=== PATIENT | male | born 1965 | race Caucasian/White ===

== ENCOUNTER 2018-05-22 03:32 | Observation (INO) | payer BC ==
[2018-05-22] MEDS ORDERED: HYDROcodone/Acetaminophen 5/325 mg Tablet ONE (05:39)
[2018-05-22 06:21] LABS: Anion Gap 10 mmol/L (10-20); BUN (Urea Nitrogen) 12 mg/dL (8.4-25.7); Calc. Creatinine Clearance 0 mL/min (70-130); Calcium 8.5 mg/dL (7.8-10.44); Carbon Dioxide 25 mmol/L (22-29); Chloride 103 mmol/L (98-107); Estimated GFR-MDRD Greater than 90; Glucose 100 mg/dL (70-105); Potassium 4.2 mmol/L (3.5-5.1); Sodium 134 mmol/L (136-145)
[2018-05-22 07:27] LABS: Troponin I Less than 0.010 ng/mL (< 0.028)
--- NOTE | 2018-05-22 09:18 | CON ---
DATE OF CONSULTATION: ATTENDING PHYSICIAN: Raciel Pearce MD HISTORY OF PRESENT ILLNESS: The patient is a 52-year-old male who is otherwise healthy, who presented to the emergency department per EMS as transfer from [facility] following a syncopal episode. The patient reports this evening , he was standing while at his 's birthday democrat when he suddenly suffered syncopal event. The patient has little memory of the event. Per witnesses, he reportedly struck the back of his head. EMS was contacted, which took him to [facility] , where CT head was done, which showed prominence of the anterior communicating artery, no acute intracranial hemorrhage was noted. The patient was also found to have a right ankle fracture. He was transferred to [facility] ER for further management. 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 The patient reports only mild headache. I have seen the patient at the bedside. He reports only mild headache at the impact site. He denies any other associated symptoms. PAST MEDICAL HISTORY: Denies any other prior medical problems. MEDICATIONS: Does not take any medications. PAST SURGICAL HISTORY: Tonsillectomy, right finger surgery. SOCIAL HISTORY: He does not smoke, drink, or use any drugs. REVIEW OF SYSTEMS: Per HPI. ALLERGIES: HE IS ALLERGIC TO PENICILLIN. PHYSICAL EXAMINATION: VITAL SIGNS: BP is 142/95, pulse is 109, respiration rate is 18, O2 is 98% on room air. CONSTITUTIONAL: A and O x4, comfortable, in no acute distress. GCS 15. HEENT: Head, he has contusion and superficial hematoma over the right posterior scalp. Eyes, PERRLA. Extraocular movements intact. ENT, oral mucosa is pink, intact and moist. The patient has normal voice. NECK: Nontender to palpation. Free active range of motion. No meningismus or nuchal rigidity. CARDIAC: Regular rate and rhythm. RESPIRATORY: Symmetric chest expansion. No evidence of dyspnea. MUSCULOSKELETAL: He has a splint in place to the right lower extremity. Remainder of extremities have free active range of motion. No focal motor weakness. No reflex asymmetry. Sensation is intact to light touch throughout. NEURO: A and O x4. Normal speech. No focal neurologic deficits are appreciated. ASSESSMENT AND PLAN: This is a 52-year-old, otherwise healthy male, who suffered an unprovoked syncopal episode tonight. 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 There is no intracranial hemorrhage identified and additionally, the patient has only mild soreness at the posterior scalp. No other significant complaints of headache or other associated symptoms. I believe, this is likely an incidental finding. The patient has been admitted to the hospitalist service for further evaluation of syncopal event. I have discussed patient presentation exam and imaging with Dr. Pearce, and he will also see the patient. Job ID: [id number] [facility]
[2018-05-22] MEDS ORDERED: CEFAZOLIN/Water 2 GM/20 ML SYRINGE SLOW IVP SCH (09:30)
[2018-05-22] MEDS ORDERED: Acetaminophen 325 MG TAB PO PRN (09:46)
[2018-05-22] MEDS ORDERED: Ondansetron PF 4 MG/2 ML Vial IVP PRN (09:46)
[2018-05-22] MEDS ORDERED: Enoxaparin Sodium 40 MG/0.4 ML SYRINGE SC SCH ×2 (09:46→10:45)
[2018-05-22] MEDS ORDERED: Ondansetron ODT 4 MG TAB PO PRN (09:46)
[2018-05-22] MEDS ORDERED: Acetaminophen 650 MG Suppository PR PRN (09:46)
--- NOTE | 2018-05-22 09:55 | CON ---
DATE OF CONSULTATION: 05/22/2018 CONSULTING PHYSICIAN: Oscar Jackson MD REASON FOR CONSULTATION: Right ankle fracture. HISTORY OF PRESENT ILLNESS: This is a 52-year-old gentleman, who was at a holiday democrat yesterday when he sustained a syncopal episode. Currently, at bedside, the patient states that he was watching a video on his cellphone with a friend when he suddenly passed out. He states he was "blacked out" for approximately 45 seconds according to witnesses. He struck his head and struck his ankle at that time. He was taken to [facility], where he was worked up and then transferred to our facility for higher level of care. He was found to have a right ankle fracture as well as an aneurysm on workup in the emergency department. Currently, at bedside, the patient states he is comfortable. He has a splint to the right lower extremity. He denies any other orthopedic injuries at the time of his fall. His pain is lessened since application of the splint. He denies any numbness or tingling or previous ankle surgeries to this extremity. PAST MEDICAL HISTORY: The patient denies any past medical history. PAST SURGICAL HISTORY: Tonsillectomy and right finger surgery. SOCIAL HISTORY: The patient states that he lives with his and 4-year-old daughter. He occasionally drinks socially. Denies any drug or tobacco use. FAMILY HISTORY: Reviewed and noncontributory. ALLERGIES: PCN REVIEW OF SYSTEMS: A 10-point review of systems is conducted and otherwise negative except for stated above. PHYSICAL EXAMINATION: Today shows, VITAL SIGNS: Blood pressure 136/102, pulse 116, respiratory rate of 20, temperature 99.6 degrees Fahrenheit, taken orally. GENERAL: The patient is awake and alert. He is in no apparent distress. He is pleasant and cooperative with exam today. Currently, no family is at bedside. HEENT: The patient does have a hematoma to the posterior portion of his scalp. NECK: Supple. Trachea midline. EXTREMITIES: The right lower extremity was evaluated. There is a short leg posterior splint present. Skin is free of lesions or rashes at the splint edges. The patient is able to move all toes. Sensation reported intact. Capillary refill 2 seconds. No other injuries noted to the remainder of the extremities. RADIOGRAPHIC FINDINGS: Including three views of the right ankle taken in the hospital in splint today reveal a distal fibula fracture of the lateral malleolus. There is displacement of the fracture site. ASSESSMENT: Right lateral malleolus fracture with displacement. PLAN: At this time, the patient will be nonweightbearing and we will plan for surgery tomorrow morning. He will be n.p.o. after midnight. Risks, benefits, and alternatives discussed at length with the patient today. These include, but are not limited to bleeding, infection, neurovascular compromise. He verbalizes understanding and is amenable to this plan of care. He is currently admitted to the telemetry and is being worked up further for his syncopal episode and newfound aneurysm. Plan of care discussed in conjunction with Dr. Jackson. Job ID: [id number] [facility]
--- NOTE | 2018-05-22 10:00 | CT ---
PRELIMINARY REPORT/[facility]/EMERGENTY AFTER-HOURS PROCEDURE CT Angiography Head Without And With Contrast EXAM DATE/TIME: 05/22/2018 5:22 AM CLINICAL HISTORY: 52 years old, male; Signs and symptoms; Syncope and collapse; Patient HX: M52 reports to ed via [place] C/O cerebral aneurysm and right ankle FX. PT was at a [employer] party and syncopized for 45 secon ds, witnessed. No fmhx aneurysm. PT denies medications. Pmhx hptn. TECHNIQUE: Axial computed tomographic angiography images of the head without and with intravenous contrast using CT angiography protocol. Coronal and sagittal reformatted images were created and reviewed. MIP beatrice nstructed images were created and reviewed. COMPARISON: No relevant prior studies available. FINDINGS: Right internal carotid artery: Unremarkable. Intracranial segment is patent with no significant steno sis. No aneurysm. Right anterior cerebral artery: Unremarkable. No occlusion or significant stenosis. No aneurysm. Right middle cerebral artery: Unremarkable. No occlusion or significant stenosis. No aneurysm. Right posterior cerebral artery: Unremarkable. No occlusion or significant stenosis. No aneurysm. Right vertebral artery: Unremarkable. No occlusion or significant stenosis. No aneurysm. Left internal carotid artery: Unremarkable. Intracranial segment is patent with no significant stenos is. No aneurysm. Left anterior cerebral artery: Unremarkable. No occlusion or significant stenosis. No aneurysm. Left middle cerebral artery: Unremarkable. No occlusion or significant stenosis. No aneurysm. Left posterior cerebral artery: Unremarkable. No occlusion or significant stenosis. No aneurysm. Left vertebral artery: Unremarkable. No occlusion or significant stenosis. No aneurysm. Basilar artery: Unremarkable. No occlusion or significant stenosis. No aneurysm. Other vasculature: Anterior communicating artery 3 mm aneurysm. HEAD: Brain: Unremarkable. No hemorrhage. No overt white matter disease. No edema. Ventricles: Normal. No ventriculomegaly. Bones/joints: Normal. No acute fracture. Sinuses: Normal as visualized. No acute sinusitis. Mastoid air cells: Normal as visualized. No mastoid effusion. Soft tissues: Posterior parietal scalp swelling. IMPRESSION: 1. No evidence of acute intracranial abnormality. 2. Anterior communicating artery 3 mm aneurysm. Thank you for allowing us to participate in the care of your patient. Dictated and Authenticated by: Gerber Velez MD 05/22/2018 6:30 AM Central Time ([place] & [place]) FINAL REPORT EMERGENT AFTER HOURS NONCONTRAST CT HEAD EMERGENT AFTER HOURS CT ANGIOGRAM HEAD: DATE: 05/22/2018. HISTORY: Syncopal episode. The patient was transferred from an outside institution with diagnosis of a cerebr al aneurysm. IMPRESSION: 1. No acute intracranial abnormality is seen on the noncontrast study. There is no intraparenchymal or extraaxial hemorrhage seen. 2. There is tortuosity of the vessels in the region of the anterior communicating arteries with ques tionable slight outpouching which may represent a tiny ACOM aneurysm; however, this may be attributab le to tortuosity. If warranted, a conventional angiogram could be performed for further evaluation. No additional aneurysm is seen within the limitations of the technique of this examination. 3. No focal stenosis or branch occlusion is seen involving the vertebrobasilar system or [place] of [place] illis. 4. Posterior parietal scalp hematoma. No underlying calvarial fracture is present. 5. Findings are in agreement with the preliminary report by [facility]. POS: [facility]
[2018-05-22 10:59] VITALS: BMI 34.4
--- NOTE | 2018-05-22 11:14 | RAD ---
RIGHT ANKLE 3 VIEWS: HISTORY: Ankle fracture. FINDINGS: Overlying fiberglass cast. Comminuted fracture of the lateral malleolus at and just above the level of the ankle mortise is present with 1/3 shaft width lateral displacement of the major distal fragmen t. Medial mortise is widened up to 0.7 cm. Medial malleolus and posterior malleolus are intact. IMPRESSION: Persistent bilateral displacement and subluxation at the Rice class C lateral malleolar fracture and lateral subluxation. POS: [facility]
--- NOTE | 2018-05-22 12:02 | PRG ---
DATE OF SERVICE: 05/22/2018 SUBJECTIVE: The patient was seen and examined. I agree with Elli Ahmadi's evaluation on 05/21/2018. The patient is a 52-year-old man with syncope. During the course of his evaluation, a prominence in the ACOM region was identified, followed up with CT angiography suggesting an aneurysm. The patient has no personal or family history of aneurysm or subarachnoid hemorrhage. He is neurologically intact. My review of the CT angiogram suggest a possible prominence in the ACOM region, which could be an infundibulum or may represent a tiny aneurysm. IMPRESSION AND PLAN: Possible tiny ACOM aneurysm. This is an incidental finding. I am recommending a followup CT angiogram in 6 months and I will arrange for this. I discussed with the patient. Job ID: [id number]
[2018-05-22] MEDS ORDERED: Clindamycin/D5W 900 MG in Premix Bag 1 BAG IVPB SCH (13:30)
[2018-05-22] MEDS ORDERED: ISOVUE-370 76%-LOCM 1 ML ONE (14:34)
[2018-05-22] MEDS: HYDROcodone/Acetaminophen 5/325 mg Tablet PO PRN (20:15)
[2018-05-23 05:20] LABS: #Eosinphils 0.5 thou/uL (0.0-0.7); #Lymphocytes 2.1 thou/uL (1.20-3.40); #Monocytes 0.9 thou/uL (0.11-0.59); #Neutrophils 6.4 thou/uL (1.40-6.50); %Basophils 0.4 % (0.0-1.0); %Eosinophils 4.9 % (0.0-10.0); %Lymphocytes 21.1 % (21.0-51.0); %Neutrophils 64.7 % (42.0-75.0); Hemoglobin 15.1 g/dL (14.0-18.0); Mean Corpuscular HGB CONC 34.5 g/dL (32.0-36.0); Mean Corpuscular Hemoglobin 30.3 pg (27.0-31.0); Mean Platelet Volume 7.2 fL (7.4-10.4); Platelet Count 247 thou/uL (130-400); RBC Distribution Width 12.3 % (11.5-14.5); Red Blood Cell (RBC) Count 4.96 mill/uL (4.70-6.10); White Blood Cell (WBC) Count 9.9 thou/uL (4.8-10.8)
[2018-05-23 05:39] LABS: Anion Gap 10 mmol/L (10-20); BUN (Urea Nitrogen) 8 mg/dL (8.4-25.7); Calc. Creatinine Clearance 173 mL/min (70-130); Calcium 8.6 mg/dL (7.8-10.44); Carbon Dioxide 25 mmol/L (22-29); Chloride 104 mmol/L (98-107); Estimated GFR-MDRD Greater than 90; Glucose 95 mg/dL (70-105); Potassium 3.8 mmol/L (3.5-5.1); Sodium 135 mmol/L (136-145)
[2018-05-23] MEDS ORDERED: hydrALAZINE 20 MG/ML VIAL SLOW IVP PRN (07:35)
[2018-05-23] MEDS ORDERED: Bisacodyl 5 MG TAB PO PRN (07:35)
[2018-05-23] MEDS ORDERED: Cepastat Lozenges 1 LOZ PO PRN (07:35)
[2018-05-23] MEDS ORDERED: Eucerin (Mineral Oil/Petrolatum,White) 30 gm Jar TOP PRN (07:35)
[2018-05-23] MEDS ORDERED: Artificial Tears 18 DROP/0.9 ML EA EYE PRN (07:35)
[2018-05-23] MEDS ORDERED: Diabetic Tussin 200 MG/10 ML UDCUP PO PRN (07:35)
[2018-05-23] MEDS ORDERED: Sodium Chloride 0.65% Nasal 44 ML BOT EA NARE PRN (07:35)
[2018-05-23] MEDS ORDERED: Loratadine 10 MG TAB PO PRN (07:35)
[2018-05-23] MEDS ORDERED: Loperamide HCl 2 MG CAP PO PRN (07:35)
[2018-05-23] MEDS ORDERED: Zolpidem Tartrate 5 MG TAB PO PRN (07:35)
[2018-05-23] MEDS ORDERED: Ketorolac Tromethamine 30 MG/ML VIAL IVP PRN (07:36)
[2018-05-23] MEDS ORDERED: Morphine 2 MG/ML SYRINGE SLOW IVP PRN (08:06)
[2018-05-23] MEDS ORDERED: Enoxaparin Sodium 40 MG/0.4 ML SYRINGE SC SCH (09:00)
[2018-05-23] MEDS ORDERED: Neomycin-Polymyxin 1 ML AMP ONE (09:28)
[2018-05-23] MEDS ORDERED: Bupivacaine PF 0.5% 30 ML VIAL ONE (09:28)
[2018-05-23] MEDS ORDERED: Clindamycin/D5W 900 mg/50 ml Premix Bag ONE (09:32)
[2018-05-23] MEDS ORDERED: Fentanyl 250 MCG/5 ML VIAL ONE (09:45)
[2018-05-23] MEDS ORDERED: Ondansetron HCl/PF 4 MG/2 ML Vial IVP PRN (10:26)
[2018-05-23] MEDS ORDERED: Promethazine HCl 25 MG/ML VIAL IM PRN (10:26)
[2018-05-23] MEDS ORDERED: Promethazine HCl 25 MG/ML VIAL SLOW IVP PRN (10:26)
--- NOTE | 2018-05-23 12:08 | PDOC.PN ---
- Subjective Encounter Start Date: 05/23/18 Encounter Start Time: 13:52 -: old records requested/rev - Objective Resuscitation Status - Order Detail: 05/22/18 07:52 Resuscitation Status Routine Resuscitation Status: FULL: Full Resuscitation MAR Reviewed: Yes Vital Signs & Weight: Vital Signs (12 hours) Temp Pulse Resp BP Pulse Ox 05/23/18 08:00 98 F 100 20 120/74 95 05/23/18 03:50 98.3 F 108 H 18 117/74 92 L Weight Weight 240 lb I&O: 05/22/18 05/23/18 05/24/18 06:59 06:59 06:59 Output Total 910 Balance -910 Result Diagrams: 05/23/18 04:34 05/23/18 04:34 EKG Reviewed by me: Yes (nsr) Phys Exam - Physical Examination Constitutional: NAD HEENT: PERRLA, moist MMs, sclera anicteric Neck: no JVD, supple Respiratory: no wheezing, no rales, no rhonchi Cardiovascular: RRR, no significant murmur, no rub Gastrointestinal: soft, non-tender, no distention, positive bowel sounds Musculoskeletal: no edema, pulses present right leg with dressing Neurological: non-focal, normal sensation, moves all 4 limbs Lymphatic: no nodes Psychiatric: normal affect, A&O x 3 Skin: no rash, normal turgor Dx/Plan (1) Ankle fracture, right Code(s): S82.891A - OTH FRACTURE OF RIGHT LOWER LEG, INIT FOR CLOS FX Status: Acute (2) Obesity (BMI 30.0-34.9) Code(s): E66.9 - OBESITY, UNSPECIFIED Status: Acute (3) Syncope Code(s): R55 - SYNCOPE AND COLLAPSE Status: Acute - Plan cont current plan of care, plan discussed w/ family * today plan for ankle surgery * get echo for syncope work up * medication reviewed as below * symptomatic treatment. Review of Systems - Review of Systems ENT: negative: Ear Pain, Ear Discharge, Nose Pain, Nose Discharge, Nose Congestion, Mouth Pain, Mouth Swelling, Throat Pain, Throat Swelling, Other Respiratory: negative: Cough, Dry, Shortness of Breath, Hemoptysis, SOB with Excertion, Pleuritic Pain, Sputum, Wheezing Cardiovascular: negative: chest pain, palpitations, orthopnea, paroxysmal nocturnal dyspnea, edema, light headedness, other Gastrointestinal: negative: Nausea, Vomiting, Abdominal Pain, Diarrhea, Constipation, Melena, Hematochezia, Other Genitourinary: negative: Dysuria, Frequency, Incontinence, Hematuria, Retention , Other Musculoskeletal: negative: Neck Pain, Shoulder Pain, Arm Pain, Back Pain, Hand Pain, Leg Pain, Foot Pain, Other - Medications/Allergies Allergies/Adverse Reactions: Allergies Allergy/AdvReac Type Severity Reaction Status Date / Time Penicillins Allergy Anaphylaxis Verified 05/22/18 14:50 Medications: Current Medications Acetaminophen (Tylenol) 650 mg PO Q4H PRN PRN Reason: Headache/Fever/Mild Pain (1-3) Hydrocodone Bitart/Acetaminophen (Irving 5/325) 1 tab PO Q4H PRN PRN Reason: Moderate Pain (4-6) Last Admin: 05/22/18 20:15 Dose: 1 tab Hydrocodone Bitart/Acetaminophen (Irving 5/325) 2 tab PO Q4H PRN PRN Reason: Severe Pain (7-10) Artificial Tears (Tears Naturale) 2 drop EA EYE PRN PRN PRN Reason: Dry Eyes Bisacodyl (Dulcolax) 10 mg PO DAILYPRN PRN PRN Reason: Constipation Fentanyl (Pacu-Sublimaze) 50 mcg SLOW IVP Q10MIN PRN PRN Reason: Moderate to Severe Pain (6-10) Stop: 05/23/18 13:26 Guaifenesin (Robitussin Sf) 200 mg PO Q4H PRN PRN Reason: Cough Hydralazine HCl (Apresoline) 10 mg SLOW IVP Q4H PRN PRN Reason: SBP > 180 and HR < 70 Clindamycin Phosphate/Dextrose (900 mg/ Device) 50 mls @ 100 mls/hr IVPB ONCALL -OR MAK Stop: 05/23/18 23:00 Ketorolac Tromethamine (Toradol) 15 mg IVP Q6H PRN PRN Reason: Pain Stop: 05/28/18 07:37 Loperamide HCl (Imodium) 2 mg PO PRN PRN PRN Reason: Diarrhea/Loose Stools Loratadine (Claritin) 10 mg PO DAILYPRN PRN PRN Reason: Sinus Symptoms Mineral Oil/White Petrolatum (Eucerin Cream) 0 gm TOP BIDPRN PRN PRN Reason: Dry Skin Morphine Sulfate (Morphine) 2 mg SLOW IVP Q4H PRN PRN Reason: Pain Ondansetron HCl (Zofran Odt) 4 mg PO Q6H PRN PRN Reason: Nausea/Vomiting Ondansetron HCl (Zofran) 4 mg IVP Q6H PRN PRN Reason: Nausea/Vomiting Ondansetron HCl (Pacu-Zofran) 4 mg IVP ONE PRN PRN Reason: Nausea/Vomiting Stop: 05/23/18 13:26 Promethazine HCl (Pacu-Phenergan) 6.25 mg SLOW IVP ONE PRN PRN Reason: Nausea/Vomiting Stop: 05/23/18 13:26 Promethazine HCl (Pacu-Phenergan) 6.25 mg IM ONE PRN PRN Reason: Nausea/Vomiting Stop: 05/23/18 13:26 Sodium Chloride ([place]ell Nasal [place] 0.65%) 0 ml EA NARE QIDPRN PRN PRN Reason: Nasal Congestion Sodium Chloride (Flush - Normal Saline) 10 ml IVF Q12HR MAK Last Admin: 05/23/18 08:42 Dose: 10 ml Sodium Chloride (Flush - Normal Saline) 10 ml IVF PRN PRN PRN Reason: Saline Flush Throat Lozenges (Cepastat Lozenges) 1 channing PO Q2H PRN PRN Reason: Sore Throat Zolpidem Tartrate (Ambien) 5 mg PO HSPRN PRN PRN Reason: Insomnia
[2018-05-23] MEDS: HYDROcodone/Acetaminophen 5/325 mg Tablet PO PRN ×3 (12:31→20:44)
--- NOTE | 2018-05-23 14:44 | HP ---
PRIMARY CARE PHYSICIAN TIME OF SERVICE: 0730 hours. CHIEF COMPLAINT: Syncope, fall from same level, and right ankle fracture. HISTORY OF PRESENT ILLNESS: Mr. Polo is a 52-year-old white male with no significant past medical history, who has had a [employer] alliance party/birthday alliance party for his the night prior and syncopized. He was told he was out for about 45 seconds, but came to, but the event when he came back to consciousness was fuzzy for him. He had no tongue biting or bowel or bladder incontinence. No tonic-clonic activity. He does not know about any head trauma. He does have a headache. He was taken to an outside emergency department in [place], where he was evaluated and found to have a right ankle fracture and was subsequently sent here for further workup. Denies any history of arrhythmias. No palpitation. No chest pain or shortness of breath. He has had no nausea, vomiting, fevers, or chills. No blood in the stools. PAST MEDICAL HISTORY: None. PAST SURGICAL HISTORY: Includes tonsillectomy and right finger repair. HOME MEDICATIONS: None. ALLERGIES: PENICILLIN, CAUSES ANAPHYLAXIS. FAMILY HISTORY: Negative for clotting or bleeding disorders, no immune dysfunction. SOCIAL HISTORY: Negative for habits x3. He is a former benefits officer. REVIEW OF SYSTEMS: All systems reviewed and negative except as per HPI. PHYSICAL EXAMINATION: VITAL SIGNS: Temperature here 99.6, pulse 109, blood pressure 142/95, respiratory rate 18, and saturating 98% on room air. GENERAL: He is awake. He is alert. He is oriented x3. He is a well-developed, well-nourished white male, appears to be in no distress. HEENT: Normocephalic and atraumatic. Pupils are equal, round, reactive to light bilaterally. Mucous membranes are moist. There is no visible lesion or no thrush. NECK: Supple. There is no lymphadenopathy, JVD, or thyromegaly. There are normal carotid upstrokes. There are no bruits. LUNGS: Clear to auscultation bilaterally. He has no wheezes, rales, or rhonchi. CARDIOVASCULAR: Normal S1 and S2. There is no S3 or S4. He is quite tachycardic. There are no murmurs. ABDOMEN: Soft, nontender, nondistended. He has good bowel sounds in all 4 quadrants. There is no rebound, rigidity, or guarding. EXTREMITIES: Showed no cyanosis, clubbing, or no edema. SKIN: Warm, moist, and well perfused. He has no rashes or no lesions. MUSCULOSKELETAL: Right ankle is in a splint and dressing was not taken down. NEUROLOGIC: Cranial nerves 2 through 12 are grossly intact. He has no focal neurologic deficits. Normal speech and 5/5 strength in all 4 extremities. LABORATORY DATA: CBC at the outside facility was normal. Chemistry here shows sodium of 134, potassium 4.2, chloride 103, bicarb 25, BUN 12, creatinine 0.64, glucose of 160, and calcium of 8.1. Troponin I was negative, less than 0.010. CT angiogram showed no pulmonary embolus, and right ankle films reportedly showed a right ankle fracture, unknown type. ASSESSMENT AND PLAN: 1. Syncope, sounds more cardiogenic. The patient had no warning or no true postictal symptoms, no bowel or bladder incontinence, etc. We placed him on the stroke precautions. We will ask Neurology to evaluate. 2. Fall from same level. The patient had some closed head trauma, but no intracranial bleed per report. We will continue to monitor. 3. Right ankle fracture. We will Orthopedics to evaluate. I spoke with Dr. Jackson. Job ID: [id number]
--- NOTE | 2018-05-23 15:37 | RAD ---
RIGHT ANKLE INTRAOPERATIVE FLUOROCOPY 3 VIEWS: HISTORY: Ankle fracture. FINDINGS: Intraoperative fluoroscopy was provided for fixation of the distal fibula as performed by Dr. Derrick mcneil Spot fluoroscopic images show lateral compression plate transfixing the distal fibula in anatomic alignment. FLUORO TIME: 7 seconds. POS: [facility]
--- NOTE | 2018-05-23 16:36 | OP ---
DATE OF PROCEDURE: 05/23/2018 PREOPERATIVE DIAGNOSIS: Right lateral malleolus fracture. POSTOPERATIVE DIAGNOSIS: Right lateral malleolus fracture. PROCEDURE PERFORMED: Open reduction and internal fixation of right lateral malleolus. ANESTHESIA: General. LEAD ANDROID DEVELOPER: Sasha Hull PA-C. TOURNIQUET TIME: 35 minutes at 300 mmHg. IMPLANTS: 2.7/3.5 mm variable angle LCP distal fibular locking plate, four-hole. COMPLICATIONS: None. DRAINS: None. SPECIMEN: None. OUTCOMES: Near-anatomic alignment. INDICATIONS: The patient is a 52-year-old gentleman who believes that he sustained a twisting injury to his right ankle and then passed out. Upon awakening, he noted lateral ankle pain and inability to ambulate. He was subsequently transferred to [facility] for further evaluation of his loss of consciousness. X-rays did confirm a displaced lateral malleolus with slight lateral displacement of the talus within the mortise. After discussion with the patient including risks and benefits, we decided to proceed with open reduction and internal fixation. Informed consent has been obtained, I believe all questions answered. DESCRIPTION OF PROCEDURE: The patient was brought to the operating room and a time-out performed followed by induction of general anesthesia. Next, the patient was positioned supine on the OR table. Then, a sterile prep and drape was performed of the right lower extremity. The limb was then exsanguinated with Esmarch bandage, tourniquet inflated to 300 mmHg. A vertical incision was made over the lateral malleolus. After skin was sharply incised, dissection was carried down bluntly to the underlying distal fibula and its fracture. The fracture hematoma was lavaged from the wound and then the fracture was reduced and held in place with a bone tenaculum. AP lateral C-arm images were then obtained to confirm anatomic alignment of the fracture. Next, a four-hole variable angle LCP distal fibular plate was applied to the lateral cortex of the distal fibula and positioned appropriately with C-arm imaging. Next, two 3.5-mm screws were placed in the slotted holes proximal to the fracture. This was then followed by insertion of four locking screws in standard fashion in the distal end of the plate. One additional 2.7-mm cortical screw was applied at the proximal extent of the plate. At this time, AP, mortise and lateral x-rays of the ankle were obtained that showed anatomic alignment of the fracture and reduction of the talus within the mortise. It should be noted that the anterior-inferior tib-fib ligament was intact stabilizing the proximal fibular shaft. Following x-rays, the wound was irrigated with normal saline and then closed in layers with 2-0 Vicryl and then nylon for the skin. The wound was then infiltrated with 0.5% Marcaine and then a Xeroform gauze, Webril, and fiberglass splint were applied to the ankle. The tourniquet was let down at the completion of dressing with total time of 35 minutes, and then the patient was transferred to recovery room in stable condition. Job ID: [id number]
[2018-05-23] MEDS ORDERED: PROPOFOL 200 MG/20 ML VIAL ONE (20:30)
[2018-05-23] MEDS ORDERED: Ketorolac Tromethamine 30 MG/ML VIAL ONE (20:30)
[2018-05-23] MEDS ORDERED: Lidocaine 1% PF 5 ML VIAL ONE (20:30)
[2018-05-23] MEDS ORDERED: Ondansetron PF 4 MG/2 ML Vial ONE (20:30)
[2018-05-23] MEDS: Famotidine 20 MG TAB PO SCH (20:44)
[2018-05-24] MEDS: HYDROcodone/Acetaminophen 5/325 mg Tablet PO PRN ×3 (01:36→11:39)
[2018-05-24 07:33] VITALS: BP 138/92; TEMP 98.3
[2018-05-24] MEDS: Famotidine 20 MG TAB PO SCH (09:10)
--- NOTE | 2018-05-24 09:17 | PDOC.PN ---
- Subjective Encounter Start Date: 05/24/18 Encounter Start Time: 07:00 Patient seen and examined. No new complaints. No overnight events his pain controlled, - Objective Resuscitation Status - Order Detail: 05/22/18 07:52 Resuscitation Status Routine Resuscitation Status: FULL: Full Resuscitation MAR Reviewed: Yes Vital Signs & Weight: Vital Signs (12 hours) Temp Pulse Resp BP Pulse Ox 05/24/18 07:32 98.3 F 99 20 138/92 H 92 L 05/24/18 04:00 99.3 F 103 H 18 139/86 92 L 05/24/18 00:00 99.8 F H 105 H 16 124/90 95 Weight Weight 240 lb I&O: 05/23/18 05/24/18 05/25/18 06:59 06:59 06:59 Intake Total 402 Output Total 910 1000 Balance -910 -598 Result Diagrams: 05/23/18 04:34 05/23/18 04:34 Radiology Reviewed by me: Yes (echo is unremarkable) EKG Reviewed by me: Yes (nsr) Phys Exam - Physical Examination Constitutional: NAD HEENT: PERRLA, moist MMs, sclera anicteric Neck: no JVD, supple Respiratory: no wheezing, no rales, no rhonchi Cardiovascular: RRR, no significant murmur, no rub Gastrointestinal: soft, non-tender, no distention, positive bowel sounds Musculoskeletal: no edema, pulses present right leg with dressing Neurological: non-focal, normal sensation, moves all 4 limbs Lymphatic: no nodes Psychiatric: normal affect, A&O x 3 Skin: no rash, normal turgor Dx/Plan (1) Ankle fracture, right Code(s): S82.891A - OTH FRACTURE OF RIGHT LOWER LEG, INIT FOR CLOS FX Status: Acute (2) Obesity (BMI 30.0-34.9) Code(s): E66.9 - OBESITY, UNSPECIFIED Status: Acute (3) Syncope Code(s): R55 - SYNCOPE AND COLLAPSE Status: Acute Comment: cardiac etiology ruled out - Plan cont current plan of care * medication reviewed as below * symptomatic treatment * will consider discharge if ortho ok * T3 for pain control. * see discharge summery Review of Systems - Review of Systems ENT: negative: Ear Pain, Ear Discharge, Nose Pain, Nose Discharge, Nose Congestion, Mouth Pain, Mouth Swelling, Throat Pain, Throat Swelling, Other Respiratory: negative: Cough, Dry, Shortness of Breath, Hemoptysis, SOB with Excertion, Pleuritic Pain, Sputum, Wheezing Cardiovascular: negative: chest pain, palpitations, orthopnea, paroxysmal nocturnal dyspnea, edema, light headedness, other Gastrointestinal: negative: Nausea, Vomiting, Abdominal Pain, Diarrhea, Constipation, Melena, Hematochezia, Other Genitourinary: negative: Dysuria, Frequency, Incontinence, Hematuria, Retention , Other Musculoskeletal: negative: Neck Pain, Shoulder Pain, Arm Pain, Back Pain, Hand Pain, Leg Pain, Foot Pain, Other Skin: negative: Rash, Lesions, Christoph, Bruising, Other - Medications/Allergies Allergies/Adverse Reactions: Allergies Allergy/AdvReac Type Severity Reaction Status Date / Time Penicillins Allergy Anaphylaxis Verified 05/22/18 14:50 Medications: Current Medications Acetaminophen (Tylenol) 650 mg PO Q4H PRN PRN Reason: Headache/Fever/Mild Pain (1-3) Hydrocodone Bitart/Acetaminophen (Hall 5/325) 1 tab PO Q4H PRN PRN Reason: Moderate Pain (4-6) Last Admin: 05/23/18 16:54 Dose: 1 tab Hydrocodone Bitart/Acetaminophen (Hall 5/325) 2 tab PO Q4H PRN PRN Reason: Severe Pain (7-10) Last Admin: 05/24/18 05:44 Dose: 2 tab Artificial Tears (Tears Naturale) 2 drop EA EYE PRN PRN PRN Reason: Dry Eyes Bisacodyl (Dulcolax) 10 mg PO DAILYPRN PRN PRN Reason: Constipation Famotidine (Pepcid) 20 mg PO BID [facility] Last Admin: 05/24/18 09:10 Dose: 20 mg Guaifenesin (Robitussin Sf) 200 mg PO Q4H PRN PRN Reason: Cough Hydralazine HCl (Apresoline) 10 mg SLOW IVP Q4H PRN PRN Reason: SBP > 180 and HR < 70 Ketorolac Tromethamine (Toradol) 15 mg IVP Q6H PRN PRN Reason: Pain Stop: 05/28/18 07:37 Loperamide HCl (Imodium) 2 mg PO PRN PRN PRN Reason: Diarrhea/Loose Stools Loratadine (Claritin) 10 mg PO DAILYPRN PRN PRN Reason: Sinus Symptoms Mineral Oil/White Petrolatum (Eucerin Cream) 0 gm TOP BIDPRN PRN PRN Reason: Dry Skin Morphine Sulfate (Morphine) 2 mg SLOW IVP Q4H PRN PRN Reason: Pain Last Admin: 05/23/18 22:27 Dose: 2 mg Ondansetron HCl (Zofran Odt) 4 mg PO Q6H PRN PRN Reason: Nausea/Vomiting Ondansetron HCl (Zofran) 4 mg IVP Q6H PRN PRN Reason: Nausea/Vomiting Sodium Chloride ([place] Nasal [place] 0.65%) 0 ml EA NARE QIDPRN PRN PRN Reason: Nasal Congestion Sodium Chloride (Flush - Normal Saline) 10 ml IVF Q12HR MAK Last Admin: 05/24/18 09:10 Dose: 10 ml Sodium Chloride (Flush - Normal Saline) 10 ml IVF PRN PRN PRN Reason: Saline Flush Throat Lozenges (Cepastat Lozenges) 1 [place] PO Q2H PRN PRN Reason: Sore Throat Zolpidem Tartrate (Ambien) 5 mg PO HSPRN PRN PRN Reason: Insomnia
--- NOTE | 2018-05-24 10:29 | DIS ---
DATE OF ADMISSION: 05/22/2018 DATE OF DISCHARGE: 05/24/2018 PRIMARY CARE PHYSICIAN: [facility] Call admission. DISCHARGE DISPOSITION: Home. PRIMARY DISCHARGE DIAGNOSES: 1. Syncope/fall ruled out cardiac etiology. 2. Right ankle fracture status post open reduction and internal fixation. 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 SECONDARY DISCHARGE DIAGNOSIS: Obesity with BMI of 34. PRIMARY PROCEDURE/OPERATION: Right ankle open reduction, internal fixation by Dr. Jackson. RADIOLOGICAL INVESTIGATION: [place] showed a 3 mm anterior communicating artery aneurysm. Ankle x-ray showed bilateral displacement and subluxation at the [place] class C lateral malleolar fracture. Echocardiography showed normal EF. LABORATORY DATA: Significant labs; WBC 9.9, hemoglobin 15.1, platelet 247. Sodium 135, potassium 3.8, chloride 104, BUN 8, creatinine 0.75, calcium 8.6. Cardiac enzyme negative. Prolactin 8.90. DISCHARGE MEDICATIONS: 1. Tylenol #3 one or two tablets q.6 hourly p.r.n. for pain. 2. Cetirizine. 3. Mucinex p.r.n., this is for allergies. CONTRAINDICATION: None. CODE STATUS: Full code. INPATIENT PRODUCTIVITY ENGINEER: Dr. Jackson was following while in the hospital who did open reduction and internal fixation for ankle fracture. Dr. Pearce was consulted for incidental finding of 3 mm anterior communicating artery aneurysm and he recommended outpatient followup. TEST RESULTS PENDING ON DISCHARGE: None. ALLERGIES: PENICILLIN. DISCHARGE PLAN: Posthospital, the patient will follow up with Dr. Pearce as instructed. The patient will follow up with Dr. Jackson as instructed. Weightbearing as per orthopedic physician. HOSPITAL COURSE: A 52-year-old male who was admitted by Dr. Lozada. Please see his H and P for further detail. The patient was reporting to me that when he turned, he initially felt popping sound in his ankle and he was having unbearable pain from his ankle and that made him to pass out. On admission, his examination was completely unremarkable. He was found with ankle fracture on the right side. CT [place] showed incidental finding of 3 mm ALPHONSO aneurysm. For that reason, neurosurgeon was consulted and they recommended outpatient followup. For ankle fracture, Dr. Jackson was consulted and he did open reduction and internal fixation. For suspected syncope workup, we did a cardiac workup and cardiac etiology ruled out. His echocardiography and his physical examination and EKG and monitor remained normal. The patient is medically stable for discharge to go home as long as orthopedic physician is okay. He will follow up with rn lactation consultant as instructed. The patient is seen and examined at bedside today. Please see my progress note from today for further detail. Job ID: [id number]
== END 2018-05-24 11:43 | disposition home or self-care (01) ==
LOC: ERS 03:32 → 2SE 07:03
PROVIDERS: ADMIT Internal Medicine; ATTEND Orthopaedic Surgery
PROC: 0QSJ04Z Reposition Right Fibula with Internal Fixation Device, Open Approach (ICD-10-PCS; principal; 2018-05-23)
DX: S82.61XA Displaced fracture of lateral malleolus of right fibula, initial encounter for closed fracture (principal); I67.1 Cerebral aneurysm, nonruptured; E66.9 Obesity, unspecified; Z68.34 Body mass index [BMI] 34.0-34.9, adult; Z88.0 Allergy status to penicillin; Z90.89 Acquired absence of other organs; Z98.890 Other specified postprocedural states; W18.30XA Fall on same level, unspecified, initial encounter
CPT/HCPCS: 36415; 70496; 76001; 80048; 84146; 84484; 85025; 93306; 96360; 96361; C1713; G0378; G8978-GP-CM; G8979-GP-CK; J1885; J2001; J2270; J2405; J2704; J3010; J3490; S0020

== ENCOUNTER 2018-11-15 13:17 | Outpatient (CLI) | payer BC ==
[~2018-11-15 13:17] MED LIST: Iopamidol 370 76% 100 ML VIAL ONE
--- NOTE | 2018-11-15 14:19 | CT ---
CT ANGIOGRAM OF THE HEAD NONCONTRAST HEAD CT AND POSTCONTRAST HEAD CT 11/15/18 HISTORY: Previous CT angiogram performed following syncope and stroke protocol. Questionable aneurysm versus t ortuosity at the level of the anterior communicating artery. COMPARISON: 05/22/18. TECHNIQUE: Noncontrast head CT is performed in the axial plane. CT angiogram of the head is performed in the axi al plane along with three dimensional reformatted images. FINDINGS: NONCONTRAST HEAD CT: No parenchymal hemorrhage. No extra-axial hematoma. No midline shift. Basilar cisterns are patent. Br ain volume, age appropriate. Cortical ramos-white matter differentiation is preserved. No evidence of hydrocephalus. Calvarium is intact. Adequate aeration of the sinuses and mastoid air cells. Postcontrast head CT does not demonstrate any pathologic enhancement of the brain parenchyma. CT ANGIOGRAM: The distal cervical and intracranial internal carotid arteries have appropriate enhancement and lumin al diameter. ANTERIOR CIRCULATION: Based on the images provided, there is appropriate enhancement and luminal diameter of the M1 segment s and proximal MCA branches. 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 There is no evidence of an aneurysm at the level of the anterior communicating artery. The region of concern noted on previous CT angiogram is felt to represent mild dilatation. A definite anterior communicating artery aneurysm with an associated neck is not appreciated. POSTERIOR CIRCULATION: Visualized PICA artery origin, vertebral artery, and basilar artery have appropriate enhancement and luminal diameter. The left and right P1 segments have appropriate enhancement and luminal diameter. IMPRESSION: No definite aneurysm at the level of the [place]. Previously noted suspected aneurysm at th e anterior communicating artery is felt to represent a focal area of mild dilatation. Continued CT a ngiogram in one year if warranted. POS: [facility]
== END 2018-11-15 13:18 | disposition home or self-care (01) ==
LOC: TBSIIMAG 13:17
PROVIDERS: ATTEND Neurological Surgery
DX: I72.9 Aneurysm of unspecified site (principal)
CPT/HCPCS: 70496; Q9967